=== PATIENT | male | born 1940 | race African-American/Black ===

== ENCOUNTER → 2017-02-01 | Day surgery (SDC) | payer MEDICARE, OTHER ==
[~2017-02-01] VITALS: Ht 181.6 cm; Wt 102.0 kg
[2017-02-01] VITALS (17 sets, daily range): BP systolic 143–171; BP diastolic 52–76; PULSE 68–85; RESP 14–18; O2SAT 95–97
[~2017-02-01] MED LIST: 0.9% Sodium Chloride 1,000 ML IV SCH; 0.9% Sodium Chloride 50 ML ONE; ASPI-973 PO; CARV3.12 PO; CLON0.3T PO; FELO10TA3 PO; Heparin 1,000 Unit/mL 10 mL Inj ONE; Heparin 1,000 Units/500 mL NS Premix IV ONE; Heparin 10,000 Unit/1,000 mL NS Premix IV ONE; INSU100I13 SUBQ; LIP40 PO; LISI40TA PO; Nitroglycerin 50,000 mcg/250 mL D5W Premix IV ONE; Verapamil 2.5 mg/mL 2 mL Inj ONE; fentaNYL-PF 50 mCg/mL 2 mL Inj ONE; hydrALAZINE 20 mg/mL Inj ONE
[2017-02-01 08:38] LABS: BASOPHILS % (AUTO) 0.4 % (0-3); EOSINOPHILS % (AUTO) 1.3 % (0-5); MONOCYTES % (AUTO) 10.4 % (4-12); Mean Corpuscular Hemoglobin 27.7 pg (27.0-35.0); Mean Corpuscular Volume 85.6 fL (81-100); NEUTROPHILS % (AUTO) 63.8 % (40-74); Platelet Count 190 bil/L (150-400)
--- NOTE | 2017-02-01 12:02 | CS94 ---
[address] [address] DIAGNOSTIC CARDIAC CATHETERIZATION PATIENT: PATO DELACRUZ : 1940 MR#: [id number] ADMIT: 02/01/2017 JOB ID: [id number] SERVICE DATE: 02/01/2017 PROCEDURE: Selective right and left coronary angiography left heart catheterization. INDICATION: Abnormal stress test PROCEDURAL DETAILS: The reader and the coders are referred to the procedure log for complete details. Briefly, we started doing this with a right radial approach. This patient has marked tortuosity of his distal subclavian and brachiocephalic. It required multiple wires to negotiate the sternum and get into the ascending aorta. However because of upstream tortuosity, there was very little torque control on the catheters. We had to resort to a femoral approach. A five-Slovenian sheath was then placed in the right femoral artery. ANGIOGRAPHIC FINDINGS: 1. Left main: No significant disease. 2. LAD is a large caliber transapical vessel in its proximal segment where it has two medium-sized diagonals and a septal, there is 50% stenosis. 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 No critical stenosis is noted in the LAD. 3. Circumflex nondominant free of any critical stenosis. 4. Right coronary was also a large caliber dominant vessel. In its mid to proximal segment it has a 40% to 50% lesion. No critical stenosis is seen in the right coronary artery. 5. Left heart catheterization revealed a mildly elevated LVEDP of 17. There was no gradient upon pullback. There were a few PVCs with the LV gram. In fact we did the LV gram twice. Mild inferoapical hypokinesis is suspected on this angiogram with mild LV dysfunction. In summary, no critical coronary artery stenosis. Recommend aggressive medical therapy.
--- NOTE | 2017-02-01 17:19 | NUR ---
[facility] Care of patient assumed at 1440. Continues without bleeding or hematoma at either right groin or right wrist puncture. Pedal and radial pulses present. Patient denies pain. Prior to discharge patient taking PO, ambulatory and void. Discharge instructions reviewed, written information given and questions answered. Home with friend at 1700.
== END | disposition home or self-care (01) ==
LOC: SOUO 01:13
PROVIDERS: ATTEND Internal Medicine Cardiovascular Disease
DX: I25.10 Atherosclerotic heart disease of native coronary artery without angina pectoris (principal); I49.3 Ventricular premature depolarization; I10 Essential (primary) hypertension; I45.2 Bifascicular block; E11.9 Type 2 diabetes mellitus without complications; G47.30 Sleep apnea, unspecified; N28.9 Disorder of kidney and ureter, unspecified; E78.5 Hyperlipidemia, unspecified; M10.9 Gout, unspecified; M17.0 Bilateral primary osteoarthritis of knee; Z79.82 Long term (current) use of aspirin; Z87.891 Personal history of nicotine dependence; Z79.4 Long term (current) use of insulin
CPT/HCPCS: 36415; 80048; 85025; 93005; 93458; 99152; 99153; C1729; C1769; C1887; C1894; J0360; J1200; J1644; J2060; J2250; J3010; J7030; Q9967